=== PATIENT | male | born 1980 | race African-American/Black ===

== ENCOUNTER 2021-03-10 15:37 | Outpatient (AMBR) | payer MEDICAID, SELFPAY ==
--- NOTE | 2021-03-10 16:07 | PTNOTE_ITS ---
PT OP Initial Eval Patient Information Visit Reasons: right arm pain Medical Diagnosis: S51.819A; S56.11 Treatment Dx #1: Right Wrist Mobility Deficits Treatment Dx #2: Right Wrist Weakness Start of Care: 03/10/21 Initial Assessment Subjective Pt is a 41 y/o male s/p right forearm laceration. Pt stated that he went through a window and cut some of his forearm muscles and artery. Pt still has a lot of pain (8/10) with movement. Pt has limitation with gripping, lifting, chores, self care, work duties, driving, and performing recreational activities. Objective Right Wrist AROM Flexion: 42 deg Extension: 8 deg Radial Deviation: 10 deg Ulnar Deviation: 30 deg Pronation: 75 deg Supination: 90 deg Right Wrist MMTs: grossly 3-/5 Cryptologic Support Specialist Strength L: 88 lbs R: 15 lbs Right Shoulder MMTs: grossly 3+/5 Right Shoulder AROM: all motions are WNL Right Elbow AROM: all motions are WNL Right Elbow MMTs: grossly 3+/5 Assessment Pt demonstrate right wrist mobility and strength deficits s/p injury leading to decline function. Pt will benefit from physical therapy to increase ROM, strength, and work on overall stability Short Term and Mysql Database Developer Goals 1) Increase right wrist AROM WFL in 8 wks to be able to perform gripping activities 2) Increase right title officer strength to 50 lbs in 8 wks to be able to perform chores 3) Decrease pain to 2/10 in 8 wks to be able to perform work duties 4) Increase shoulder MMTs grossly to 4-/5 in 8 wks to be able to perform recreational activities 5) Indep with HEP Treatment Plan 1) Manual Therapy 2) Therapeutic Activities 3) Therapeutic Exercises 4) Modalities (ice, heat) Frequency and Duration 2 x wk for 8 wks Certification Dates: 03/10/21 to 06/10/21 Office Procedures PT Procedures PT Date of Service: 03/10/21 OP PT Eval Mod Complex 30 minutes: Yes
--- NOTE | 2021-03-24 16:04 | PT.ODS1RPT ---
PT OP Progress/Discharge Note Date of Service: 03/24/21 Progress Note/DC Note Progress Note/Discharge Note: DC Note Patient Information Visit Reasons: right arm pain Service Continue Service or Discharge: Discharge Discharge Date: 03/24/21 Status Assessment: Pt has only been seen for the initial evaluation. Pt no showed (03/17, 03/24) appts. At this time Pt will be d/c from care due to non-compliance per attendance policy. Pt did not meet set goals in therapy, thank you for your referrals Office Procedures PT Procedures PT Date of Service: 03/10/21 OP PT Eval Mod Complex 30 minutes: Yes
== END 2021-04-07 23:59 | disposition home or self-care (01) ==
PROVIDERS: PCP Physician Assistant; Referring Provider Physician Assistant; Visit Provider Physician Assistant
DX: S51.811D Laceration without foreign body of right forearm, subsequent encounter (principal); M79.631 Pain in right forearm; R53.1 Weakness; W25.XXXD Contact with sharp glass, subsequent encounter
CPT/HCPCS: 97162